=== PATIENT | male | born 1955 | race Caucasian/White ===

== ENCOUNTER 2021-02-14 06:58 | Emergency (ER) | payer BC, MEDICARE ==
--- NOTE | 2021-02-14 07:50 | ERPHSYRPT ---
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 Patient describes pain as an ache that is generalized. Pain rated 4 out of 10. No associated nausea or vomiting. Patient states he has been constipated. Pain has been ongoing for the past 2 days. Patient also complains of generalized body aches. Patient states "I feel like I have the flu". Patient has some neck soreness however he has had no photophobia. No nuchal rigidity. No meningeal signs. Patient is unsure what is causing his symptoms. 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 Patient states he gets bounced around in his truck and is wondering whether or not this is causing his abdominal pain. Symptoms are mild to moderate in intensity. Otherwise no specific worsening or improving factors. Patient voices no other complaints concerns at this time. Timing/Duration: yesterday Activities at Onset: none Quality: aching Abdominal Pain Onset Location: generalized abdomen Pain Radiation: no radiation Severity of Pain-Max: moderate Severity of Pain-Current: mild Modifying Factors: Improves With: nothing Associated Symptoms: denies symptoms, No chest pain, No diarrhea, No fever/chills, No loss of appetite, No shortness of breath, No vomiting, No weakness Previous symptoms: no prior history Allergies/Adverse Reactions: No Known Drug Allergies Allergy (Verified 02/14/21 07:14) Home Medications: Aspirin EC 81 mg [Ecotrin 81 mg] 81 mg PO DAILY 02/14/21 [History] Metformin HCl 500 mg [Glucophage 500 MG] 500 mg PO DAILY 02/14/21 [History] Omeprazole Magnesium [Prilosec Otc] 20 mg PO DAILY 02/14/21 [History] Pravastatin Sodium 20 mg PO DAILY 02/14/21 [History] Rivaroxaban [Xarelto] 20 mg PO DAILY 02/14/21 [History] Travel Risk - International Travel Have you traveled outside of the country in past 3 weeks: No - Coronavirus Screening Are you exhibiting any of the following symptoms?: Yes Symptoms: Cough: New Onset Close contact with a COVID-19 positive Pt in past 14-21 Days: No - Vaccine Status Have you recieved a Covid-19 vaccination: No - Review of Systems Constitutional: No Symptoms, No Fever, No Chills Eyes: No Symptoms Ears, Nose, & Throat: No Symptoms Respiratory: No Symptoms, No Cough, No Dyspnea Cardiac: No Symptoms, No Chest Pain, No Edema, No Syncope Abdominal/Gastrointestinal: No Symptoms, No Abdominal Pain, No Nausea, No Vomiting, No Diarrhea Genitourinary Symptoms: No Symptoms, No Dysuria Musculoskeletal: No Symptoms, No Back Pain, No Neck Pain Skin: No Symptoms, No Rash Neurological: No Symptoms, No Dizziness, No Focal Weakness, No Sensory Changes Psychological: No Symptoms Endocrine: No Symptoms Hematologic/Lymphatic: No Symptoms Immunological/Allergic: No Symptoms All Other Systems: Reviewed and Negative - Past Medical History Pertinent Past Medical History: Yes Cardiac History: High Cholesterol, Hypertension Endocrine Medical History: Diabetes Type II GI Medical History: GERD Other Medical History: DVT's - Past Surgical History Past Surgical History: Yes Gastrointestinal: Appendectomy Other Surgical History: carpal tunnel, tendonitis, ankle reconstructed - Social History Smoking Status: Former smoker Exposure to second hand smoke: Yes Drug Use: none Patient Lives Alone: No - Nursing Vital Signs Nursing Vital Signs: Initial Vital Signs Temperature 99.2 F 02/14/21 07:04 Pulse Rate 88 02/14/21 07:04 Blood Pressure 152/82 02/14/21 07:04 O2 Sat by Pulse Oximetry 97 02/14/21 07:04 Pain Scale Pain Intensity 4 - Physical Exam General Appearance: no apparent distress, alert Eye Exam: PERRL/EOMI, eyes nml inspection Ears, Nose, Throat Exam: normal ENT inspection, pharynx normal, moist mucous membranes Neck Exam: normal inspection, non-tender, supple, full range of motion Respiratory Exam: normal breath sounds, lungs clear, No respiratory distress Cardiovascular Exam: regular rate/rhythm, normal heart sounds Gastrointestinal/Abdomen Exam: soft, No tenderness, No mass Back Exam: normal inspection, normal range of motion, No CVA tenderness, No vertebral tenderness Extremity Exam: normal inspection, normal range of motion, pelvis stable Neurologic Exam: alert, oriented x 3, cooperative, normal mood/affect, sensation nml, No motor deficits Skin Exam: normal color, warm, dry Lymphatic Exam: No adenopathy SpO2 Interpretation: normal SpO2: 97 O2 Delivery: Room Air - Course Nursing assessment & vital signs reviewed: Yes EKG Interpreted by Me: RATE ([id number]), Sinus Rhythm, Left [place] Deviation, NORMAL INTERVALS - CT Exams Abdomen/Pelvis CT Interpretation: Tele-radiologist Report (No hernia partial intrathoracic stomach, colonic diverticulosis, fatty hepatomegaly, bilateral renal cysts. Bilateral iliac vein stent grafts. Graft stent obstruction not completely excluded given the presence of lower abdominal wall subcutaneous varicosities.) Ordered Tests: Active Orders 24 hr Category Date Time Status EKG-ER Only STAT Care 02/14/21 07:22 Active IV Insertion STAT Care 02/14/21 07:22 Active ABDOMEN AND PELVIS W CONTRAST [CT] Stat Exams 02/14/21 07:22 Completed CBC W DIFF Stat Lab 02/14/21 08:00 Completed CMP Stat Lab 02/14/21 08:00 Completed LIPASE Stat Lab 02/14/21 08:00 Completed TROPONIN Q3H Lab 02/14/21 08:00 Completed TROPONIN Q3H Lab 02/14/21 10:34 Completed TROPONIN Q3H Lab 02/14/21 13:30 Ordered TROPONIN Q3H Lab 02/14/21 16:30 Ordered TROPONIN Q3H Lab 02/14/21 19:30 Ordered UA W/RFX UR CULTURE Stat Lab 02/14/21 10:05 Ordered Lab/Rad Data: Laboratory Result Diagrams 02/14/21 08:00 02/14/21 08:00 Laboratory Results 02/14/21 02/14/21 02/14/21 Range/Units 10:34 08:00 08:00 WBC (4.0-10.5) K/mm3 RBC (4.1-5.6) M/mm3 Hgb (12.5-18.0) gm/dl Hct (42-50) % MCV (78-100) fl MCH (26-32) pg MCHC (32-36) g/dl RDW (11.5-14.0) % Plt Count (150-450) K/mm3 MPV (7.5-11.0) fl Gran % (36.0-66.0) % Eos # (Auto) (0-0.5) Absolute Lymphs (auto) (1.0-4.6) Absolute Monos (auto) (0.0-1.3) Lymphocytes % (24.0-44.0) % Monocytes % (0.0-12.0) % Eosinophils % (0.00-5.0) % Basophils % (0.0-0.4) % Absolute Granulocytes (1.4-6.9) Basophils # (0-0.4) Sodium 138 (137-145) mmol/L Potassium 4.3 (3.5-5.1) mmol/L Chloride 101 (98-107) mmol/L Carbon Dioxide 27 (22-30) mmol/L Anion Gap 14.2 (5-15) MEQ/L BUN 17 (9-20) mg/dL Creatinine 1.20 (0.66-1.25) mg/dL Estimated GFR > 60.0 ML/MIN Glucose 223 H (74-106) mg/dL Calcium 9.1 (8.4-10.2) mg/dL Total Bilirubin 1.10 (0.2-1.3) mg/dL AST 72 H (17-59) U/L ALT 61 H (0-50) U/L Alkaline Phosphatase 55 (38-126) U/L Troponin I < 0.012 < 0.012 (0.000-0.034) ng/mL Serum Total Protein 7.1 (6.3-8.2) g/dL Albumin 4.1 (3.5-5.0) g/dL Lipase 71 (23-300) U/L 02/14/21 Range/Units 08:00 WBC 3.5 L (4.0-10.5) K/mm3 RBC 3.93 L (4.1-5.6) M/mm3 Hgb 11.9 L (12.5-18.0) gm/dl Hct 35.5 L (42-50) % MCV 90.3 (78-100) fl MCH 30.3 (26-32) pg MCHC 33.5 (32-36) g/dl RDW 13.1 (11.5-14.0) % Plt Count 165 (150-450) K/mm3 MPV 9.0 (7.5-11.0) fl Gran % 62.8 (36.0-66.0) % Eos # (Auto) 0.04 (0-0.5) Absolute Lymphs (auto) 0.83 L (1.0-4.6) Absolute Monos (auto) 0.42 (0.0-1.3) Lymphocytes % 23.8 L (24.0-44.0) % Monocytes % 12.0 (0.0-12.0) % Eosinophils % 1.1 (0.00-5.0) % Basophils % 0.3 (0.0-0.4) % Absolute Granulocytes 2.19 (1.4-6.9) Basophils # 0.01 (0-0.4) Sodium (137-145) mmol/L Potassium (3.5-5.1) mmol/L Chloride (98-107) mmol/L Carbon Dioxide (22-30) mmol/L Anion Gap (5-15) MEQ/L BUN (9-20) mg/dL Creatinine (0.66-1.25) mg/dL Estimated GFR ML/MIN Glucose (74-106) mg/dL Calcium (8.4-10.2) mg/dL Total Bilirubin (0.2-1.3) mg/dL AST (17-59) U/L ALT (0-50) U/L Alkaline Phosphatase (38-126) U/L Troponin I (0.000-0.034) ng/mL Serum Total Protein (6.3-8.2) g/dL Albumin (3.5-5.0) g/dL Lipase (23-300) U/L - Progress Progress: improved Progress Note: Patient has bilateral iliac vein stents. Graft stent obstruction not completely excluded given the presence of lower abdominal wall subcutaneous varicosities. 02/14/21 10:28 02/14/21 11:[address] Tyson of [facility]. Dr. Tyson is a vascular surgeon. Per Dr. Tyson there is no indication to admit patient for the abdominal wall subcutaneous varicosities. He does not think this would cause patient's abdominal pain. Furthermore he does not think that iliac vein grafts would cause these varicosities. Patient's abdominal pain at this point is unclear. The CAT scan is otherwise negative for acute pathology. Clinically there are no signs or symptoms of stent obstruction. However patient may have Covid giving his change of taste and viral-like symptoms. We will test for Covid at discharge. Patient to follow-up with Dr. Tyson regarding these subcutaneous abdominal varicosities. - Departure Departure Disposition: Home Clinical Impression: Lung granuloma, Diverticulosis, Hepatic steatosis, Hepatomegaly, Renal cyst, Aortoiliac calcifications, Thoracolumbar arthritis, Lower abdominal wall subcutaneous varico, Hiatal hernia, Bilateral iliac vein stent grafts Condition: Stable Critical Care Time: No Referrals: DOCTOR,NO FAMILY [Primary Care Provider] - ALESSANDRA ANDERSON [ACTIVE STAFF] - Additional Instructions: Discharge/Care Plan AIDA RAMIREZ was seen on 02/14/21 in the Emergency Room. The patient was counseled regarding Diagnosis,Lab results, Imaging studies, need for follow up and when to return to the Emergency Room. Prescriptions given: Discharge Note I have spoken with the patient and/or caregivers. I have explained the patient's condition, diagnosis and treatment plan based on the information available to me at this time. I have answered the patient's and/or caregiver's questions and addressed any concerns. The patient and/or caregivers have as good understanding of the patient's diagnosis, condition and treatment plan as can be expected at this point. The vital signs have been stable. The patient's condition is stable and appropriate for discharge from the emergency department. The patient will pursue further outpatient evaluation with the primary care physician or other designated or consulting physician as outlined in the d ischarge instructions. The patient and/or caregivers are agreeable to this plan of care and follow-up instructions have been explained in detail. The patient and/or caregivers have received these instruction. The patient/and or caregivers are aware that any significant change in condition or worsening of symptoms should prompt an immediate return to this or the closest emergency department or call 911.
[2021-02-14 08:07] LABS: Absolute Neutrophil Ct (ANC) 2.19 (1.4-6.9); BASOPHIL % 0.3 % (0.0-0.4); Basophil (Absolute #) 0.01 (0-0.4); Eosinophil % 1.1 % (0.00-5.0); Eosinophil (Absolute #) 0.04 (0-0.5); Hematocrit 35.5 % (42-50); Hemoglobin 11.9 gm/dl (12.5-18.0); Lymphocyte (Absolute #) 0.83 (1.0-4.6); Lymphocytes % 23.8 % (24.0-44.0); Mean Cell Volume 90.3 fl (78-100); Mean Corpuscular Hemoglobin 30.3 pg (26-32); Mean Corpuscular Hgb Concent. 33.5 g/dl (32-36); Monocyte (Absolute #) 0.42 (0.0-1.3); Neutrophil % 62.8 % (36.0-66.0); Platelet Count 165 K/mm3 (150-450); Red Blood Count 3.93 M/mm3 (4.1-5.6); Red Cell Distribution Width 13.1 % (11.5-14.0); White Blood Count 3.5 K/mm3 (4.0-10.5)
[2021-02-14 08:21] LABS: ALBUMIN 4.1 g/dL (3.5-5.0); ALKALINE PHOSPHATASE 55 U/L (38-126); ANION GAP 14.2 MEQ/L (5-15); BLOOD UREA NITROGEN 17 mg/dL (9-20); CHLORIDE 101 mmol/L (98-107); Calcium 9.1 mg/dL (8.4-10.2); Carbon Dioxide 27 mmol/L (22-30); EST GLOMERULAR FILTRATION RATE > 60.0 ML/MIN; Glucose 223 mg/dL (74-106); LIPASE 71 U/L (23-300); Potassium 4.3 mmol/L (3.5-5.1); SGOT/AST 72 U/L (17-59); SGPT/ALT 61 U/L (0-50); SODIUM 138 mmol/L (137-145); Total Protein 7.1 g/dL (6.3-8.2)
--- NOTE | 2021-02-14 10:13 | XRAY ---
Indication: Stomach pain. Suspect Covid 19. Multiple contiguous axial images obtained through the abdomen and pelvis using 80 cc Isovue 370 contrast. Comparison: None Lung bases demonstrates minimal dependent atelectasis and tiny calcified granulomas. No focal infiltrate or effusion. Heart not enlarged. Small hiatal hernia with partial intrathoracic stomach. Noncontrasted stomach and bowel loops appear nonobstructed. Appendectomy reported. Mild diffuse scattered colonic diverticulosis without diverticulitis. No free fluid/air. Mild fatty hepatomegaly measuring 20.8 cm. Both kidneys enhance and excrete with a few bilateral renal cysts, largest left midpole measuring 2.4 cm. Remaining liver, gallbladder, pancreas, spleen, adrenal glands, kidneys, ureters, and bladder are unremarkable. Mild scattered aortoiliac calcifications. No AAA or pathologic retroperitoneal lymphadenopathy. Incidental bilateral iliac vein stent grafts. Osseous structures intact with mild degenerative changes throughout the thoracolumbar spine with incidental lower abdominal wall subcutaneous varicosities. Impression: 1. Hiatal hernia with partial intrathoracic stomach, colonic diverticulosis, fatty hepatomegaly, and bilateral renal cysts. 2. Bilateral iliac vein stent grafts. Lack of graft stent and IVC opacification limits evaluation for patency. Graft stent obstruction not completely excluded given the presence of lower abdominal wall subcutaneous varicosities.
[2021-02-14 11:11] VITALS: BP 144/82; PULSE 82
[2021-02-14 11:47] LABS: Appearance CLEAR (CLEAR); Bilirubin NEGATIVE (NEGATIVE); Blood NEGATIVE Ery/ul (0-5); Glucose NEGATIVE (NEGATIVE); Ketones NEGATIVE (NEGATIVE); Leukocyte Esterase NEGATIVE (NEGATIVE); Mucus SLIGHT /HPF (NEGATIVE); Nitrite NEGATIVE (NEGATIVE); Protein,Urine Dip NEGATIVE (Negative); RBC 0-2 /HPF (0-2); Specific Gravity 1.027 (1.005-1.025); Urobilinogen NEGATIVE mg/dL (0-1)
[2021-02-14 11:48] LABS: Bacteria FEW /HPF (NEGATIVE); Epithelial Cells FEW /HPF (FEW); WBC 0-2 /HPF (0-5)
[2021-02-14 11:54] VITALS: O2SAT 97
== END 2021-02-14 13:08 | disposition home or self-care (01) ==
LOC: ED 06:58
DX: J84.10 Pulmonary fibrosis, unspecified (principal); U07.1 COVID-19; K57.90 Diverticulosis of intestine, part unspecified, without perforation or abscess without bleeding; K76.0 Fatty (change of) liver, not elsewhere classified; R16.0 Hepatomegaly, not elsewhere classified; N28.1 Cyst of kidney, acquired; I70.0 Atherosclerosis of aorta; M13.88 Other specified arthritis, other site; I86.8 Varicose veins of other specified sites; K44.9 Diaphragmatic hernia without obstruction or gangrene; Z79.01 Long term (current) use of anticoagulants; Z79.899 Other long term (current) drug therapy; Z79.4 Long term (current) use of insulin; E11.9 Type 2 diabetes mellitus without complications; I10 Essential (primary) hypertension; Z86.718 Personal history of other venous thrombosis and embolism
CPT/HCPCS: 36415; 74177; 80053; 81001; 83690; 84484; 85025; 93005; 99284; U0003